=== PATIENT | female | born 1945 | race Caucasian/White ===

== ENCOUNTER 2016-08-04 11:23 | Emergency (ER) | payer MEDICARE ==
[~2016-08-04] VITALS: Ht 167.6 cm; Wt 45.4 kg
[~2016-08-04 11:23] MED LIST: ALBU18HF IH; AZIT250T PO; PRED20TA PO
[2016-08-04 12:00] LABS: BASO # 0.1 x10^3/uL (0.0-0.2); BASO % 1 % (0-3); EOS % 0 % (0-3); HEMATOCRIT 32.5 % (36.0-47.0); HEMOGLOBIN 11.1 g/dL (12.0-15.5); LYMPH # 1.2 x10^3/uL (1.0-4.8); LYMPH % 10 % (24-48); MEAN CORPUSCULAR HEMOGLOBIN 31 pg (25-35); MEAN CORPUSCULAR HGB CONC 34 g/dL (31-37); MEAN CORPUSCULAR VOLUME 91 fL (79-100); MONO # 0.7 x10^3/uL (0.0-1.1); MONO % 6 % (0-9); NEUT # 10.2 x10^3uL (1.8-7.7); NEUT % 84 % (31-73); PLATELET COUNT 770 x10^3/uL (140-400); RED BLOOD COUNT 3.57 x10^6/uL (3.50-5.40); WHITE BLOOD COUNT 12.2 x10^3/uL (4.0-11.0)
[2016-08-04] MEDS: ONDANSETRON PF 4 MG/2 ML VIAL. IV ONE (12:07)
[2016-08-04] MEDS: IV NORMAL SALINE 1,000ML 1,000 ML IV ONE (12:07)
[2016-08-04] MEDS: FENTANYL PF 100 MCG/2 ML VIAL. IV ONE (12:07)
[2016-08-04 12:10] LABS: ALBUMIN 2.6 g/dL (3.4-5.0); ALBUMIN/GLOBULIN RATIO 0.5 (1.0-1.7); C REACTIVE PROTEIN 63.7 mg/L (0-3.3); CALCIUM 9.9 mg/dL (8.5-10.1); CREATININE 1.3 mg/dL (0.6-1.0); GFR 40.2; POTASSIUM 4.7 mmol/L (3.5-5.1); TOTAL BILIRUBIN 0.2 mg/dL (0.2-1.0); TOTAL PROTEIN 7.8 g/dL (6.4-8.2)
--- NOTE | 2016-08-04 12:14 | ED.ADGEN ---
Past History Past Medical History: Arthritis, Other Past Surgical History: Other Alcohol Use: Sober Drug Use: None Adult General Chief Complaint Chief Complaint Abdominal pain HPI HPI Patient is a 71-year-old female with history of recurrent pancreatitis presents with diffuse left lower quadrant pain for the past 4 days. Pain is described as sharp, unrelenting is rated moderate to severe. Pain is worse with palpation and movement. Associated symptoms include nausea and watery diarrhea. Patient states symptoms are similar to previous episodes of pancreatitis, but that she has has not had a flareup in the past 5 years. Patient denies blood in stool recent antibiotics. Denies history of C. difficile for diverticulitis. Over fever chills or sweats. No other acute symptoms or complaints. Review of Systems Review of Systems Review of symptoms as per history of present illness. All other review symptoms as per HPI. Current Medications Current Medications Current Medications Medications (Trade) Dose Ordered Sig/Leyla Start Time Stop Time Status Last Admin Dose Admin Fentanyl Citrate (Fentanyl 2ml Vial) 50 mcg 1X ONCE 08/04/16 12:10 08/04/16 12:11 DC 08/04/16 12:07 50 MCG Iohexol (Omnipaque 240 Mg/ml) 50 ml 1X ONCE 08/04/16 13:10 08/04/16 13:11 DC 08/04/16 14:05 50 ML Ondansetron HCl 4 mg 4 mg 1X ONCE 08/04/16 12:10 08/04/16 12:11 DC 08/04/16 12:07 4 MG Sodium Chloride (Iv Sodium Chloride 0.9% 1,000ml) 1,000 ml @ 1,000 mls/hr 1X ONCE 08/04/16 12:10 08/04/16 13:09 DC 08/04/16 12:07 1,000 MLS/HR Allergies Allergies Allergies Coded Allergies Type Severity Reaction Last Updated Verified Sulfa (Sulfonamide Antibiotics) Allergy Intermediate 04/30/16 Yes methotrexate Allergy Intermediate 04/30/16 Yes Physical Exam Physical Exam Constitutional: Well developed, well nourished, no acute distress, non-toxic appearance. HENT: Normocephalic, atraumatic, bilateral external ears normal, oropharynx moist, no oral exudates, nose normal. Eyes: PERRLA, EOMI, conjunctiva normal. Neck: Normal range of motion, supple. Cardiovascular:Heart rate regular rhythm, no murmur. Lungs & Thorax: Bilateral breath sounds clear to auscultation. Abdomen: Bowel sounds normal, soft, he is lower abdominal pain with voluntary guarding. Skin: Warm, dry. Back: No tenderness, no CVA tenderness. Extremities: No tenderness. Neurologic: Alert and oriented X 3, normal motor function, normal sensory function, no focal deficits noted. Psychologic: Affect normal, judgement normal, mood normal. Current Patient Data Vital Signs Vital Signs Date Time Temp Pulse Resp B/P Pulse Ox O2 Delivery O2 Flow Rate FiO2 08/04/16 12:07 22 08/04/16 11:30 97.6 89 92 Room Air Lab Results Laboratory Tests Test 08/04/16 11:44 08/04/16 13:15 White Blood Count 12.2x10^3/uL (4.0-11.0) H Red Blood Count 3.57x10^6/uL (3.50-5.40) Hemoglobin 11.1g/dL (12.0-15.5) L Hematocrit 32.5% (36.0-47.0) L Mean Corpuscular Volume 91fL (79-100) Mean Corpuscular Hemoglobin 31pg (25-35) Mean Corpuscular Hemoglobin Concent 34g/dL (31-37) Red Cell Distribution Width 14.0% (11.5-14.5) Platelet Count 770x10^3/uL (140-400) H Neutrophils (%) (Auto) 84% (31-73) H Lymphocytes (%) (Auto) 10% (24-48) L Monocytes (%) (Auto) 6% (0-9) Eosinophils (%) (Auto) 0% (0-3) Basophils (%) (Auto) 1% (0-3) Neutrophils # (Auto) 10.2x10^3uL (1.8-7.7) H Lymphocytes # (Auto) 1.2x10^3/uL (1.0-4.8) Monocytes # (Auto) 0.7x10^3/uL (0.0-1.1) Eosinophils # (Auto) 0.0x10^3/uL (0.0-0.7) Basophils # (Auto) 0.1x10^3/uL (0.0-0.2) Segmented Neutrophils % 87% (35-66) H Band Neutrophils % 3% (0-9) Lymphocytes % 7% (24-48) L Monocytes % 3% (0-10) Platelet Estimate Increased (ADEQUATE) Sodium Level 127mmol/L (136-145) L Potassium Level 4.7mmol/L (3.5-5.1) Chloride Level 91mmol/L (98-107) L Carbon Dioxide Level 20mmol/L (21-32) L Anion Gap 16 (6-14) H Blood Urea Nitrogen 33mg/dL (7-20) H Creatinine 1.3mg/dL (0.6-1.0) H Estimated GFR (Cockcroft-Gault) 40.2 BUN/Creatinine Ratio 25 (6-20) H Glucose Level 87mg/dL (70-99) Calcium Level 9.9mg/dL (8.5-10.1) Total Bilirubin 0.2mg/dL (0.2-1.0) Aspartate Amino Transferase (AST) 24U/L (15-37) Alanine Aminotransferase (ALT) 31U/L (14-59) Alkaline Phosphatase 66U/L (46-116) C-Reactive Protein 63.7mg/L (0-3.3) H Total Protein 7.8g/dL (6.4-8.2) Albumin 2.6g/dL (3.4-5.0) L Albumin/Globulin Ratio 0.5 (1.0-1.7) L Lipase 303U/L (73-393) Urine Collection Type Unknown Urine Color Yellow Urine Clarity Clear Urine pH 5.0 Urine Specific [place] 1.010 Urine Protein >100 mg/dl (NEG-TRACE) Urine Glucose (UA) Negmg/dL (NEG) Urine Ketones (Stick) Negmg/dL (NEG) Urine Blood Trace (NEG) Urine Nitrite Neg (NEG) Urine Bilirubin Neg (NEG) Urine Urobilinogen Dipstick 0.2mg/dL (0.2 mg/dL) Urine Leukocyte Esterase Neg (NEG) Urine RBC Occ/HPF (0-2) Urine WBC 1-4/HPF (0-4) Urine Squamous Epithelial Cells Few/LPF Urine Bacteria 0/HPF (0-FEW) Urine Hyaline Casts Few/HPF Urine Granular Casts Few/HPF Urine Mucus Slight/LPF EKG EKG [] Radiology/Procedures Radiology/Procedures [CT abdomen/pelvis: Pulmonary infiltrate, no obvious intraabdominal process] Impressions: Pneumonia, nonspecific abdominal pain without acute findings, chronic hyponatremia Course & Med Decision Making Course & Med Decision Making Pertinent Labs and Imaging studies reviewed. (See chart for details) Symptoms improved with treatment. Since abdomen pain resolved. Will treat with pneumonia in all up with PCP with regard to management of chronic hyponatremia [ ] Final Impression Final Impression [1. Pneumonia 2. Abdominal pain-resolved 3. hyponatremia] Problems: Dragon Disclaimer Dragon Disclaimer This electronic medical record was generated, in whole or in part, using a voice recognition dictation system. NICOLETTE QUEZADA DO Aug 04, 2016 12:14
[2016-08-04 12:40] LABS: % BANDS 3 % (0-9); % LYMPHS 7 % (24-48); % MONOS 3 % (0-10); % SEGS 87 % (35-66); PLT ESTIMATE INCREASED (ADEQUATE)
[2016-08-04 13:37] LABS: BACTERIA,URINE 0 /HPF (0-FEW); BILIRUBIN,URINE NEG (NEG); CLARITY,URINE CLEAR; COLOR,URINE YELLOW; GLUCOSE,URINE NEG (NEG); NITRITE,URINE NEG (NEG); RBC,URINE OCC /HPF (0-2); SQUAMOUS EPITHELIAL CELL,UR FEW /LPF; UROBILINOGEN,URINE 0.2 mg/dL (0.2 mg/dL)
[2016-08-04 13:38] LABS: GRANULAR CASTS,URINE FEW /HPF; HYALINE CASTS, URINE FEW /HPF
[2016-08-04] MEDS: IOHEXOL 240 MG/ML 50ML VIAL. PO ONE (14:05)
--- NOTE | 2016-08-04 14:28 | RAD ---
EXAM: Abdomen and pelvis CT without intravenous contrast. HISTORY: Pain. TECHNIQUE: Computed tomographic images of the abdomen and pelvis were obtained without contrast. Multiplanar reformatting was performed. COMPARISON: None. FINDINGS: Evaluation of the lower thorax demonstrates right middle lobe and lingular scarring. There is patchy and groundglass opacity within the left greater than right lower lobes likely due to multifocal infiltrate rather than atelectasis or scarring. No effusion is seen. The liver is mildly enlarged. There is a 1 cm hypodense lesion within the left hepatic lobe, the attenuation of which favors a cyst. There is a phrygian cap within the gallbladder. There is common bile duct dilatation without a clear obstructing lesion at the level of the ampulla. There is also pancreatic ductal dilatation and a suspected cystic lesion within the pancreatic tail measuring approximately 2.4 cm. The spleen and adrenal glands are unremarkable. The kidneys are unremarkable. The appendix is unremarkable. There are few sigmoid diverticula. There is no evidence of diverticulitis. There is no evidence of obstruction. There is a torturous atherosclerotic abdominal aorta. There is increased fat within the inguinal canals. There is a small calcified uterine fibroid. There is lumbar scoliosis and multilevel degenerative change throughout the lumbar spine. There are mild compression deformities of T12 and L1. IMPRESSION: 1. Multifocal airspace disease within the left and right lower lobes, likely due to infiltrate. This may be superimposed on atelectasis or scarring. 2. 2.4 cm cystic lesion within the pancreatic tail. There is also irregular pancreatic ductal dilatation. This was demonstrated on an abdomen MRI performed at outside facility on 05/27/2010. Repeat MRI/MRCP can be performed to assess for interval change if clinically indicated 3. Hepatomegaly. 4. Lobulated contour of the gallbladder likely due to phrygian cap. There is no clear color wall thickening. 5. Sigmoid diverticulosis. 6. 1 cm hypodense lesion within the liver. In the absence of known malignancy, this is likely a cyst or hemangioma. 7. Mild chronic appearing compression deformities at T12 and L1. PQRS Compliance Statement: One or more of the following individualized dose reduction techniques were utilized for this examination: 1. Automated exposure control 2. Adjustment of the mA and/or kV according to patient size 3. Use of iterative reconstruction technique
[2016-08-04 14:50] VITALS: BP 148/80
== END 2016-08-04 14:49 | disposition home or self-care (01) ==
LOC: ER 11:23
DX: R10.32 Left lower quadrant pain (principal); J18.9 Pneumonia, unspecified organism; E87.1 Hypo-osmolality and hyponatremia; Z86.19 Personal history of other infectious and parasitic diseases; Z88.2 Allergy status to sulfonamides; Z88.8 Allergy status to other drugs, medicaments and biological substances
CPT/HCPCS: 36415; 74176; 80053; 81001; 83690; 85007; 85027; 86140; 96361; 96374; 96375; 99285; J2405; J3010; Q9966; J7030

== ENCOUNTER 2016-12-06 19:48 | Emergency (ER) | payer MEDICARE ==
[~2016-12-06] VITALS: Ht 167.6 cm; Wt 49.1 kg
[2016-12-06] MEDS ORDERED: HYDROcodone/APAP 5/325MG 1 TAB TABLET PO ONE (20:15)
[2016-12-06 20:30] VITALS: BP 161/90
--- NOTE | 2016-12-10 07:05 | ED.ADGEN ---
Past History Past Medical History: Arthritis, Other Past Surgical History: Other Alcohol Use: Sober Drug Use: None Adult General Chief Complaint Chief Complaint Skin tear right elbow HPI HPI Patient is a 71-year-old female with history of rheumatoid arthritis not on anticoagulation therapy presents with accidental fall from loss of balance resulting in isolated right elbow injury. Injury occurred just prior to ED arrival. Patient denies joint pain, swelling or deformity, but has a superficial skin tear to extensor surface of her proximal forearm below the elbow. She denies hitting her head. She denies headache, neck pain, extremity weakness or loss of sensation. Patient denies any medical symptoms prior to fall and loss of balance. Review of Systems Review of Systems ROS as per HPI. All other ROS are negative. Current Medications Current Medications Current Medications Medications (Trade) Dose Ordered Sig/Leyla Start Time Stop Time Status Last Admin Dose Admin Acetaminophen/ Hydrocodone Bitart (Lortab 5/325) 1 tab 1X ONCE 12/06/16 20:15 12/06/16 20:17 DC 12/06/16 20:14 1 TAB Allergies Allergies Allergies Coded Allergies Type Severity Reaction Last Updated Verified Sulfa (Sulfonamide Antibiotics) Allergy Intermediate 04/30/16 Yes methotrexate Allergy Intermediate 04/30/16 Yes Physical Exam Physical Exam Constitutional: Well developed, well nourished, no acute distress, non-toxic appearance. [] HENT: Normocephalic, atraumatic, bilateral external ears normal, oropharynx moist, no oral exudates, nose normal. [] Eyes: PERRLA, EOMI, conjunctiva normal, no discharge. [] Neck: Normal range of motion, no tenderness, supple, no stridor. [] Cardiovascular:Heart rate regular rhythm, no murmur [] Lungs & Thorax: Bilateral breath sounds clear to auscultation [] Abdomen: Bowel sounds normal, soft, no tenderness, no masses, no pulsatile masses. [] Skin: Warm, dry, no erythema, no rash. [] Back: No tenderness, no CVA tenderness. [] Extremities: Right upper extremities, no deformities, joint laxities, bruising or swelling. Patient with partially 5 x 7 cm skin tear to extensor surface of right proximal forearm. Bleeding is controlled. Wound is clean. Remaining skin is moist and is able to be reapproximated. [] Neurologic: Alert and oriented X 3, right upper extremity, no motor weakness or loss of sensation.. [] Psychologic: Affect normal, judgement normal, mood normal. [] Current Patient Data Vital Signs Vital Signs Date Time Temp Pulse Resp B/P (MAP) Pulse Ox O2 Delivery O2 Flow Rate FiO2 12/06/16 20:30 98.3 79 20 161/90 (113) 96 Room Air EKG EKG [] Radiology/Procedures Radiology/Procedures [] Course & Med Decision Making Course & Med Decision Making Pertinent Labs and Imaging studies reviewed. (See chart for details) [Mechanical fall with superficial skin tear to right forearm. Wound cleaned, with edges reapproximated and bandage per nursing. Wound is not currently requiring antibiotics. Recommend continued supportive care with PCP follow-up for wound reevaluation. Return precautions reviewed. Final Impression Final Impression [1. Skin tear of right forearm] Problems: Dragon Disclaimer Dragon Disclaimer This electronic medical record was generated, in whole or in part, using a voice recognition dictation system. NICOLETTE QUEZADA DO Dec 10, 2016 07:05
== END 2016-12-06 20:30 | disposition home or self-care (01) ==
LOC: ER 19:48
DX: S51.811A Laceration without foreign body of right forearm, initial encounter (principal); M06.9 Rheumatoid arthritis, unspecified; Z88.2 Allergy status to sulfonamides; Z88.8 Allergy status to other drugs, medicaments and biological substances; W19.XXXA Unspecified fall, initial encounter; Y93.89 Activity, other specified; Y99.8 Other external cause status; Y92.89 Other specified places as the place of occurrence of the external cause
CPT/HCPCS: 99283

== ENCOUNTER 2017-04-14 17:23 | Emergency (ER) | payer MEDICARE ==
[~2017-04-14] VITALS: Ht 167.6 cm; Wt 45.4 kg
[2017-04-14 17:30] VITALS: BP 163/79
--- NOTE | 2017-04-14 17:59 | PHYS DOC ---
Past History Past Medical History: Arthritis, Hypertension, Other Past Surgical History: Other Smoking: Non-smoker Alcohol Use: Occasionally Drug Use: None Adult General Chief Complaint Chief Complaint: ABNORMAL LABS HPI HPI 71-year-old female patient with history of rheumatoid arthritis and CLL on remission had blood tests by her commissioner of conciliation at [facility] today and was told to come to ER because of low hemoglobin. Patient complaining of generalized weakness and dizziness for the last 6 weeks that gradually getting worse without hematuria and melena and hematemesis. Patient states she had unremarkable blood test 6 weeks ago. Patient had coronary ecchymoses and currently taking Plavix. Patient had history of blood transfusion previously. Review of Systems Review of Systems Constitutional: Denies fever or chills, reports generalized weakness [] Eyes: Denies change in visual acuity, redness, or eye pain [] HENT: Denies nasal congestion or sore throat [] Respiratory: Denies cough or shortness of breath [] Cardiovascular: No additional information not addressed in HPI [] GI: Denies abdominal pain, nausea, vomiting, bloody stools or diarrhea [] : Denies dysuria or hematuria [] Musculoskeletal: Reports back and joint pain [] Integument: Denies rash or skin lesions [] Neurologic: Denies headache, focal weakness or sensory changes [] Endocrine: Denies polyuria or polydipsia [] All other systems were reviewed and found to be within normal limits, except as documented in this note. Allergies Allergies Allergies Coded Allergies Type Severity Reaction Last Updated Verified Sulfa (Sulfonamide Antibiotics) Allergy Intermediate 04/30/16 Yes methotrexate Allergy Intermediate 04/30/16 Yes Physical Exam Physical Exam Constitutional: Thin patient , mild distress, non-toxic appearance. [] HENT: Normocephalic, atraumatic, bilateral external ears normal, oropharynx moist, no oral exudates, nose normal, pallor. [] Eyes: PERRLA, EOMI, conjunctiva normal, no discharge. [] Neck: Normal range of motion, no tenderness, supple, no stridor. [] Cardiovascular:Heart rate regular rhythm, no murmur [] Lungs & Thorax: Bilateral breath sounds clear to auscultation [] Abdomen: Bowel sounds normal, soft, no tenderness, no masses, no pulsatile masses. [] Skin: Warm, dry, no erythema, no rash, multiple extremities and trunk old and new ecchymoses [] Back: No tenderness, no CVA tenderness. [] Extremities: No tenderness, no cyanosis, no clubbing, ROM intact, no edema. [] Neurologic: Alert and oriented X 3, normal motor function, normal sensory function, no focal deficits noted. [] Psychologic: Affect normal, judgement normal, mood normal. [] EKG EKG [] Radiology/Procedures Radiology/Procedures [] Course & Med Decision Making Course & Med Decision Making Patient's care transferred to Dr Hogue at 1800 with pending labs. Romeo Disclaimer Dragon Disclaimer This electronic medical record was generated, in whole or in part, using a voice recognition dictation system. Departure Departure: Referrals: DEX SCHROEDER MD (PCP) LANE BRAMBILA MD Apr 14, 2017 17:59
[2017-04-14 18:25] LABS: BASO # 0.2 x10^3/uL (0.0-0.2); BASO % 2 % (0-3); EOS # 0.1 x10^3/uL (0.0-0.7); EOS % 0 % (0-3); HEMATOCRIT 23.8 % (36.0-47.0); HEMOGLOBIN 7.9 g/dL (12.0-15.5); LYMPH # 1.3 x10^3/uL (1.0-4.8); LYMPH % 9 % (24-48); MEAN CORPUSCULAR HEMOGLOBIN 32 pg (25-35); MEAN CORPUSCULAR HGB CONC 33 g/dL (31-37); MEAN CORPUSCULAR VOLUME 95 fL (79-100); MONO # 0.8 x10^3/uL (0.0-1.1); MONO % 6 % (0-9); NEUT # 11.1 x10^3uL (1.8-7.7); NEUT % 83 % (31-73); PLATELET COUNT 715 x10^3/uL (140-400); RED BLOOD COUNT 2.51 x10^6/uL (3.50-5.40); RED CELL DISTRIBUTION WIDTH 14.9 % (11.5-14.5); WHITE BLOOD COUNT 13.5 x10^3/uL (4.0-11.0)
[2017-04-14 18:43] LABS: ALBUMIN 3.4 g/dL (3.4-5.0); CALCIUM 9.3 mg/dL (8.5-10.1); CREATININE 1.4 mg/dL (0.6-1.0); GFR 36.9; POTASSIUM 5.9 mmol/L (3.5-5.1); TOTAL BILIRUBIN 0.1 mg/dL (0.2-1.0); TOTAL PROTEIN 6.9 g/dL (6.4-8.2)
--- NOTE | 2017-04-14 20:49 | EKG ---
[address] [address] Test Date: 2017-04-14 Test Time: 20:19:19 Pat Name: DAVE BENITEZ Department: Room: Gender: F Belt Dresser: ELIGIO : 1945 Requested By: GARCIA CRAMER Order Number: [id number] Reading MD: Measurements Intervals [place] Rate: 72 P: 63 IN: 192 QRS: 68 QRSD: 84 T: 75 QT: 378 QTc: 420 Interpretive Statements SINUS RHYTHM NO SPECIFIC ECG ABNORMALITIES RI6.01 Unconfirmed report No previous ECG available for comparison
[2017-04-14] MEDS ORDERED: CALCIUM GLUCONATE 1,000 MG/10 ML VIAL IV ONE (21:00)
== END 2017-04-14 21:57 | disposition home or self-care (01) ==
LOC: ER 17:23
DX: C91.11 Chronic lymphocytic leukemia of B-cell type in remission (principal); D64.89 Other specified anemias; E86.1 Hypovolemia; E87.1 Hypo-osmolality and hyponatremia; E87.5 Hyperkalemia; I10 Essential (primary) hypertension; M06.9 Rheumatoid arthritis, unspecified; Z79.02 Long term (current) use of antithrombotics/antiplatelets; Z88.8 Allergy status to other drugs, medicaments and biological substances
CPT/HCPCS: 36415; 80053; 85025; 85610; 93005; 96374; 99285; J0610

== ENCOUNTER 2017-04-23 11:53 | Emergency (ER) | payer MEDICARE ==
[~2017-04-23] VITALS: Ht 167.6 cm; Wt 49.1 kg
[2017-04-23] MEDS ORDERED: IV NORMAL SALINE 1,000ML 1,000 ML IV SCH (12:41)
[2017-04-23] MEDS ORDERED: ONDANSETRON PF 4 MG/2 ML VIAL. ONE (12:48)
--- NOTE | 2017-04-23 12:54 | PHYS DOC ---
Past History Past Medical History: Arthritis, Hypertension, Other Past Surgical History: No Surgical History Smoking: Non-smoker Alcohol Use: None Drug Use: None Adult General Chief Complaint Chief Complaint: WEAKNESS/GENERALIZED HPI HPI Patient is a 71 year old female who presents with complaint of generalized weakness and fatigue. Patient was seen in the emergency department approximately 1-1/2 weeks ago. Patient was found to have anemia, dehydration, and hyperkalemia at that time. Patient was offered admission to the hospital but refused at that time. Patient presents back to the emergency department today stating that she is having worsening symptoms. Patient denies any new or not symptoms associated with this visit. The patient states that she is too weak to be able to take care of herself at home. The patient states that she would like to be admitted to the hospital for treatment. Patient denies any pain in her chest or abdomen but states that she is unable to get out of a chair under her own power and feels very weak. Review of Systems Review of Systems Constitutional: Generalized weakness, denies fever[] Eyes: Denies change in visual acuity, redness, or eye pain [] HENT: Denies nasal congestion or sore throat [] Respiratory: Denies cough or shortness of breath [] Cardiovascular: Denies chest pain or edema[] GI: Anorexia, denies abdominal pain, vomiting, or diarrhea[] : Denies dysuria or hematuria [] Musculoskeletal: Denies back pain or joint pain [] Integument: Denies rash or skin lesions [] Neurologic: Denies headache, focal weakness or sensory changes [] All other systems were reviewed and found to be within normal limits, except as documented in this note. Current Medications Current Medications Current Medications Medications (Trade) Dose Ordered Sig/Leyla Start Time Stop Time Status Last Admin Dose Admin Sodium Chloride 1,000 ml @ 100 mls/hr Q10H 04/23/17 12:41 04/23/17 22:40 Allergies Allergies Allergies Coded Allergies Type Severity Reaction Last Updated Verified Sulfa (Sulfonamide Antibiotics) Allergy Intermediate 04/30/16 Yes methotrexate Allergy Intermediate 04/30/16 Yes Physical Exam Physical Exam Constitutional: Alert, afebrile, cachectic appearance. [] HENT: Normocephalic, atraumatic, bilateral external ears normal, oropharynx moist, no oral exudates, nose normal. [] Eyes: PERRLA, EOMI, conjunctiva normal, no discharge. [] Neck: Normal range of motion, no tenderness, supple, no stridor. [] Cardiovascular: Tachycardia, regular rhythm, no murmur [] Lungs & Thorax: Bilateral breath sounds clear to auscultation [] Abdomen: Bowel sounds normal, soft, no tenderness, no masses, no pulsatile masses. [] Skin: Warm, dry, no erythema, no rash. [] Back: No tenderness, no CVA tenderness. [] Extremities: No tenderness, no cyanosis, no clubbing, ROM intact, no edema. [] Neurologic: Alert and oriented X 3, symmetric 3 out of 5 motor strength in the bilateral upper and lower extremities, normal sensory function, no focal deficits noted. [] Current Patient Data Vital Signs Vital Signs Date Time Temp Pulse Resp B/P (MAP) Pulse Ox O2 Delivery O2 Flow Rate FiO2 04/23/17 12:27 97.7 66 22 94 Room Air Lab Results Laboratory Tests Test 04/23/17 12:55 04/23/17 14:40 White Blood Count 15.4 x10^3/uL Red Blood Count 2.31 x10^6/uL Hemoglobin 7.1 g/dL Hematocrit 21.4 % Mean Corpuscular Volume 93 fL Mean Corpuscular Hemoglobin 31 pg Mean Corpuscular Hemoglobin Concent 33 g/dL Red Cell Distribution Width 14.3 % Platelet Count 689 x10^3/uL Neutrophils (%) (Auto) 90 % Lymphocytes (%) (Auto) 5 % Monocytes (%) (Auto) 5 % Eosinophils (%) (Auto) 0 % Basophils (%) (Auto) 1 % Neutrophils # (Auto) 13.9 x10^3uL Lymphocytes # (Auto) 0.7 x10^3/uL Monocytes # (Auto) 0.7 x10^3/uL Eosinophils # (Auto) 0.0 x10^3/uL Basophils # (Auto) 0.1 x10^3/uL Segmented Neutrophils % 83 % Band Neutrophils % 3 % Lymphocytes % 9 % Monocytes % 4 % Basophils % 1 % Toxic Granulation Slight Platelet Estimate Increased Large Platelets Occ Polychromasia Mod Hypochromasia Slight Anisocytosis Slight Microcytosis Slight Tear Drop Cells Occ Ovalocytes Occ Sodium Level 129 mmol/L Potassium Level 4.5 mmol/L Chloride Level 95 mmol/L Carbon Dioxide Level 17 mmol/L Anion Gap 17 Blood Urea Nitrogen 44 mg/dL Creatinine 1.4 mg/dL Estimated GFR (Cockcroft-Gault) 36.9 BUN/Creatinine Ratio 31 Glucose Level 63 mg/dL Calcium Level 9.3 mg/dL Magnesium Level 1.8 mg/dL Total Bilirubin 0.2 mg/dL Aspartate Amino Transf (AST/SGOT) 30 U/L Alanine Aminotransferase (ALT/SGPT) 31 U/L Alkaline Phosphatase 56 U/L Total Protein 6.8 g/dL Albumin 2.9 g/dL Albumin/Globulin Ratio 0.7 Urine Collection Type Unknown Urine Color Yellow Urine Clarity Clear Urine pH 5.0 Urine Specific [place] 1.010 Urine Protein 30 mg/dl Urine Glucose (UA) Neg mg/dL Urine Ketones (Stick) 15 mg/dL Urine Blood Neg Urine Nitrite Neg Urine Bilirubin Neg Urine Urobilinogen Dipstick 0.2 mg/dL Urine Leukocyte Esterase Neg Urine RBC 1-2 /HPF Urine WBC 1-4 /HPF Urine Squamous Epithelial Cells Many /LPF Urine Bacteria 0 /HPF Current Medications Medications (Trade) Dose Ordered Sig/Leyla Route PRN Reason Start Time Stop Time Status Last Admin Dose Admin Sodium Chloride 1,000 ml @ 100 mls/hr Q10H IV 04/23/17 12:41 04/23/17 22:40 04/23/17 13:00 Ondansetron HCl (Zofran) 4 mg STK-MED ONCE .ROUTE 04/23/17 12:48 04/23/17 12:49 DC EKG EKG Interpreted by me: Heart rate 103, sinus tachycardia, occasional PVCs normal intervals, normal axis, no acute ST/T-wave abnormalities present[] Radiology/Procedures Radiology/Procedures [address] [address] IMAGING REPORT Signed PATIENT: DAVE BENITEZ ACCOUNT: [id number] : 1945 LOCATION: ER AGE: 71 SEX: F EXAM STATUS: REG ER ORD. PHYSICIAN: BELA LOPEZ MD REASON: generalized weakness, rule out acute cardiopulmonary abnormality PROCEDURE: PORTABLE CHEST 1V Portable chest, 04/23/2017: History: Weakness Comparison is made to a study from 07/12/2016. The heart size is normal. There is calcific plaquing of the aorta. Scattered parenchymal scars are present. There is a rounded opacity projected over the lateral aspect of the right mid lung raising the possibility of a pulmonary nodule. It is superimposed over the anterior aspect of the fourth rib. An overlying rib or costochondral shadow may be contributing to this appearance. No acute infiltrate is seen. There is no evidence of pleural fluid. The bony structures are demineralized. There is a mild thoracic scoliosis. IMPRESSION: Possible right lung nodule. Radiographic follow-up or CT scanning is suggested. DICTATED AND SIGNED BY: GLORIA WERNER MD DATE: 04/23/17 1256 CC: BELA LOPEZ MD; DEX SCHROEDER MD ~ [] Course & Med Decision Making Course & Med Decision Making Pertinent Labs and Imaging studies reviewed. (See chart for details) Patient was started on IV fluids in the emergency department. The patient was found to have persistent anemia, acute renal failure likely due to dehydration, and continued hyponatremia. The patient is displaying severe weakness which is generalized. The patient will require admission to the hospital for further care. The patient does have significant thrombocytosis and leukocytosis with no evidence of acute infection based off of the emergency department workup. I spoke with Dr. Vo who stated that the patient may require additional services including hematology which is not available here at [facility]. I contacted Dr. Copeland at [facility] and she accepted care patient for transfer. I spoke with the family regarding plan of care and they were in agreement at time of disposition. Dragon Disclaimer Dragon Disclaimer This electronic medical record was generated, in whole or in part, using a voice recognition dictation system. Departure Departure: Impression: Primary Impression: Generalized weakness Additional Impressions: Anemia Dehydration Azotemia Hyponatremia Thrombocytosis Leukocytosis Moderate protein malnutrition History of chronic lymphocytic leukemia Disposition: XFER SHT-TRM HOSP Condition: STABLE Referrals: DEX SCHROEDER MD (PCP) Problem Qualifiers Additional Impressions: Anemia Anemia type: unspecified type Qualified Codes: D64.9 - Anemia, unspecified Leukocytosis Leukocytosis type: unspecified Qualified Codes: D72.829 - Elevated white blood cell count, unspecified BELA LOPEZ MD Apr 23, 2017 12:54
--- NOTE | 2017-04-23 12:59 | RAD ---
Portable chest, 04/23/2017: History: Weakness Comparison is made to a study from 07/12/2016. The heart size is normal. There is calcific plaquing of the aorta. Scattered parenchymal scars are present. There is a rounded opacity projected over the lateral aspect of the right mid lung raising the possibility of a pulmonary nodule. It is superimposed over the anterior aspect of the fourth rib. An overlying rib or costochondral shadow may be contributing to this appearance. No acute infiltrate is seen. There is no evidence of pleural fluid. The bony structures are demineralized. There is a mild thoracic scoliosis. IMPRESSION: Possible right lung nodule. Radiographic follow-up or CT scanning is suggested.
[2017-04-23 13:12] LABS: BASO # 0.1 x10^3/uL (0.0-0.2); BASO % 1 % (0-3); EOS % 0 % (0-3); HEMATOCRIT 21.4 % (36.0-47.0); HEMOGLOBIN 7.1 g/dL (12.0-15.5); LYMPH # 0.7 x10^3/uL (1.0-4.8); LYMPH % 5 % (24-48); MEAN CORPUSCULAR HEMOGLOBIN 31 pg (25-35); MEAN CORPUSCULAR HGB CONC 33 g/dL (31-37); MEAN CORPUSCULAR VOLUME 93 fL (79-100); MONO # 0.7 x10^3/uL (0.0-1.1); MONO % 5 % (0-9); NEUT # 13.9 x10^3uL (1.8-7.7); NEUT % 90 % (31-73); PLATELET COUNT 689 x10^3/uL (140-400); RED BLOOD COUNT 2.31 x10^6/uL (3.50-5.40); RED CELL DISTRIBUTION WIDTH 14.3 % (11.5-14.5); WHITE BLOOD COUNT 15.4 x10^3/uL (4.0-11.0)
[2017-04-23 13:22] LABS: ALBUMIN 2.9 g/dL (3.4-5.0); ALBUMIN/GLOBULIN RATIO 0.7 (1.0-1.7); CALCIUM 9.3 mg/dL (8.5-10.1); CREATININE 1.4 mg/dL (0.6-1.0); GFR 36.9; MAGNESIUM 1.8 mg/dL (1.8-2.4); POTASSIUM 4.5 mmol/L (3.5-5.1); TOTAL BILIRUBIN 0.2 mg/dL (0.2-1.0); TOTAL PROTEIN 6.8 g/dL (6.4-8.2)
[2017-04-23 14:13] LABS: % BANDS 3 % (0-9); % BASOS 1 % (0-3); % LYMPHS 9 % (24-48); % MONOS 4 % (0-10); % SEGS 83 % (35-66)
[2017-04-23 14:15] LABS: PLT ESTIMATE INCREASED (ADEQUATE)
[2017-04-23 14:16] LABS: HYPOCHROMIA SLIGHT; POLYCHROMASIA MOD; TOXIC GRANULATION SLIGHT
[2017-04-23 14:17] LABS: ANISOCYTOSIS SLIGHT
[2017-04-23 14:19] LABS: MICROCYTOSIS SLIGHT; OVALOCYTES OCC; TEAR DROP CELLS OCC
[2017-04-23 15:30] LABS: BILIRUBIN,URINE NEG (NEG); CLARITY,URINE CLEAR; COLOR,URINE YELLOW; GLUCOSE,URINE NEG (NEG)
[2017-04-23 15:31] LABS: BACTERIA,URINE 0 /HPF (0-FEW); NITRITE,URINE NEG (NEG); SQUAMOUS EPITHELIAL CELL,UR MANY /LPF; UROBILINOGEN,URINE 0.2 mg/dL (0.2 mg/dL)
--- NOTE | 2017-04-23 16:25 | EKG ---
[address] [address] Test Date: 2017-04-23 Test Time: 13:23:36 Pat Name: DAVE BENITEZ Department: Room: Gender: F Simulation Tech: ELIGIO : 1945 Requested By: BELA LOPEZ Order Number: [id number] Reading MD: Martell Marcum MD Measurements Intervals [place] Rate: 103 P: 90 KS: 190 QRS: 66 QRSD: 84 T: 61 QT: 346 QTc: 455 Interpretive Statements SINUS TACHYCARDIA VENTRICULAR PREMATURE COMPLEX(ES) NON-SPECIFIC ST/T CHANGES Electronically Signed On 04-28-2017 14:40:46 LOCOMOTIVE ELECTRICIAN by Martell Marcum MD
[2017-04-23 18:19] VITALS: BP 137/55
== END 2017-04-23 18:43 | disposition short-term general hospital (02) ==
LOC: ER 11:53
DX: R53.1 Weakness (principal); D64.9 Anemia, unspecified; E86.0 Dehydration; E87.1 Hypo-osmolality and hyponatremia; D47.3 Essential (hemorrhagic) thrombocythemia; D72.829 Elevated white blood cell count, unspecified; C91.10 Chronic lymphocytic leukemia of B-cell type not having achieved remission; E44.0 Moderate protein-calorie malnutrition; I10 Essential (primary) hypertension; Z88.2 Allergy status to sulfonamides; Z88.8 Allergy status to other drugs, medicaments and biological substances
CPT/HCPCS: 36415; 71010; 80053; 81001; 83735; 85007; 85025; 86850; 86900; 86901; 93005; 96360; 96361; 99285-25; J7030

== ENCOUNTER 2017-08-30 08:29 | Emergency (ER) | payer MEDICARE ==
[2017-08-30 08:34] VITALS: BP 143/68
[2017-08-30] MEDS ORDERED: predniSONE 20 MG TABLET PO ONE (09:00)
--- NOTE | 2017-08-30 09:13 | PHYS DOC ---
Past History Past Medical History: Arthritis, Hypertension, Other Past Surgical History: No Surgical History Smoking: Non-smoker Alcohol Use: None Drug Use: None Adult General Chief Complaint Chief Complaint: shoulder pain HPI HPI 72-year-old right-handed female patient with history of advanced rheumatoid arthritis states she woke up this morning with left shoulder pain and unable to move her shoulder because of severe pain. Patient rated her pain without movement 4 and with movement pain and denies known injury history of the same pain. She states her right hand is almost useless and she uses her left hand usually since this morning she was not able to use her left hand. Patient states she took one [place] 5 mg about 45 minutes prior to arrival to ER and doesn 't want to have another pain medication at this time. Patient is on 5 Mg of Prednisone daily but did not take her medication today. Patient denies paresthesia or weakness of her hand. Patient denies chest pain, shortness of breath, fever and chills, dizziness and palpitation. Patient had left elbow bursa drainage 2 weeks ago and patient states the bursa filled up very soon after the procedure. Review of Systems Review of Systems Constitutional: Denies fever or chills [] Eyes: Denies change in visual acuity, redness, or eye pain [] HENT: Denies nasal congestion or sore throat [] Respiratory: Denies cough or shortness of breath [] Cardiovascular: No additional information not addressed in HPI [] GI: Denies abdominal pain, nausea, vomiting, bloody stools or diarrhea [] : Denies dysuria or hematuria [] Musculoskeletal: Denies back pain, reports joint pain [] Integument: Denies rash or skin lesions [] Neurologic: Denies headache, focal weakness or sensory changes [] Endocrine: Denies polyuria or polydipsia [] All other systems were reviewed and found to be within normal limits, except as documented in this note. Current Medications Current Medications Current Medications Medications (Trade) Dose Ordered Sig/Leyla Start Time Stop Time Status Last Admin Dose Admin Prednisone (Prednisone) 60 mg 1X ONCE 08/30/17 09:00 08/30/17 09:01 UNV 08/30/17 08:54 60 MG Allergies Allergies Allergies Coded Allergies Type Severity Reaction Last Updated Verified Sulfa (Sulfonamide Antibiotics) Allergy Intermediate 04/30/16 Yes methotrexate Allergy Intermediate 04/30/16 Yes Physical Exam Physical Exam Constitutional: Well developed, well nourished, mild distress, non-toxic appearance. [] HENT: Normocephalic, atraumatic Eyes: PERRLA, EOMI, conjunctiva normal, no discharge. [] Neck: Normal range of motion, no tenderness, supple, no stridor. [] Cardiovascular:Heart rate regular rhythm, no murmur [] Lungs & Thorax: Bilateral breath sounds clear to auscultation [] Skin: Warm, dry Back: No tenderness, no CVA tenderness. [] Extremities: Left shoulder holding on internal rotation and adduction position, erythema of AC joint with tenderness and limited range of active motion without neurovascular deficit, no sign of septic joint, left elbow with a large bursa, extensive arthritis joints of bilateral hands Neurologic: Alert and oriented X 3, normal motor function, normal sensory function, no focal deficits noted. [] Psychologic: Affect normal, judgement normal, mood normal. [] EKG EKG [] Radiology/Procedures Radiology/Procedures [][place] [address] IMAGING REPORT Signed PATIENT: DAVE BENITEZ ACCOUNT: [id number] : 1945 LOCATION: ER AGE: 72 SEX: F EXAM STATUS: REG ER ORD. PHYSICIAN: LANE BRAMBILA MD REASON: pain, no injury PROCEDURE: SHOULDER 2+V LEFT Left shoulder AP and scapular Y x-rays 3 views History: Left shoulder pain, history of rheumatoid arthritis. Findings: No fracture or dislocation. Mild clavicle osteophyte at the acromioclavicular joint. No bony erosions evident. There is mild subcortical bone sclerosis of the humeral head and glenoid may be reactive related to arthrosis. Soft tissues are unremarkable. Impression: No acute osseous injury. Arthritic change as described above. DICTATED AND SIGNED BY: MARY PACHECO MD DATE: 08/30/17 0913 CC: LANE BRAMBILA MD; DEX SCHROEDER MD ~ Course & Med Decision Making Course & Med Decision Making Pertinent Imaging studies reviewed. (See chart for details) Evolution of patient in ER showed 72-year-old female patient with advanced rheumatoid arthritis and complaining of left shoulder pain and painful range of motion morning with tenderness of joints and marked erythema and edema. Extremity did not show fracture and just showed arthritis change. Patient had [place] prior to arrival to and didn't want pain medication. Patient also had left elbow bursa that following with her aws developer. Patient treated with prednisone in ER and plan to give a dose of Medrol Dosepak and prescription of [place] and instruction to follow with her wishes as a scheduled 3 days. Shoulder sling was applied and patient instructed to use passive movement of left shoulder. Dragon Disclaimer Dragon Disclaimer This electronic medical record was generated, in whole or in part, using a voice recognition dictation system. Departure Departure: Impression: Primary Impression: Acute rheumatoid arthritis Disposition: HOME, SELF-CARE (At 0230) Condition: IMPROVED Referrals: DEX SCHROEDER MD (PCP) Patient Instructions: Arthritis, Reactive, Rheumatoid Arthritis, Smoking Cessation Additional Instructions: Apply ice on the affected area Follow-up with your aws developer as scheduled in 3 days Return to ER if not getting better Scripts Hydrocodone Bit/Acetaminophen (NORCO 5-325 TABLET) 1 Each Tablet 1 TAB PO PRN Q6HRS Y for PAIN, #20 TAB 0 Refills Prov: LANE BRAMBILA MD 08/30/17 Methylprednisolone (MEDROL) 4 Mg Tab.ds.pk 1 PKG PO UD, #1 PKG Prov: LANE BRAMBILA MD 08/30/[address] BRAMBILA MD Aug 30, 2017 09:13
--- NOTE | 2017-08-30 09:18 | RAD ---
Left shoulder AP and scapular Y x-rays 3 views History: Left shoulder pain, history of rheumatoid arthritis. Findings: No fracture or dislocation. Mild clavicle osteophyte at the acromioclavicular joint. No bony erosions evident. There is mild subcortical bone sclerosis of the humeral head and glenoid may be reactive related to arthrosis. Soft tissues are unremarkable. Impression: No acute osseous injury. Arthritic change as described above.
[2017-08-30] MEDS ORDERED: HYDR-971 PO (09:28)
[2017-08-30] MEDS ORDERED: METH4TAB2 PO (09:28)
== END 2017-08-30 09:33 | disposition home or self-care (01) ==
LOC: ER 08:29
DX: M06.812 Other specified rheumatoid arthritis, left shoulder (principal); I10 Essential (primary) hypertension; Z88.2 Allergy status to sulfonamides; Z88.8 Allergy status to other drugs, medicaments and biological substances
CPT/HCPCS: 73030; 99284; J7512